=== PATIENT | female | born 1980 | race Caucasian/White ===

== ENCOUNTER 2023-03-07 15:25 | Inpatient (IN) | payer MEDICAID ==
[~2023-03-07] VITALS: Ht 160 cm; Wt 63.6 kg
[2023-03-07] MEDS ORDERED: acetaminophen 325mg tablet PO ONE (16:25)
[2023-03-07] MEDS ORDERED: ketorolac tromethamine 15mg/ml inj. IM ONE (16:25)
[2023-03-07 16:39] LABS: BASOPHILS % (AUTO) 0.2 % (0-1); EOSINOPHILS # (AUTO) 0.1 X10'3 (0-0.9); EOSINOPHILS % (AUTO) 0.4 % (0-6); HEMATOCRIT 33.1 % (35.0-45.0); HEMOGLOBIN 10.9 g/dl (12.0-16.0); LYMPHOCYTES # (AUTO) 1.8 X10'3 (1.1-4.8); LYMPHOCYTES % (AUTO) 11.5 % (21-51); MEAN CORPUSCULAR HEMOGLOBIN 29.5 PG (27.0-31.0); MEAN CORPUSCULAR VOLUME 89.4 FL (78-98); MEAN PLATELET VOLUME 7.5 FL (7.4-10.4); MONOCYTES # (AUTO) 2.1 X10'3 (0-0.9); MONOCYTES % (AUTO) 13.3 % (2-12); NEUTROPHILS # (AUTO) 11.8 X10'3 (1.8-7.7); NEUTROPHILS % (AUTO) 74.6 % (42-75); PLATELET COUNT 415 X10'3 (140-440); WHITE BLOOD COUNT 15.8 X10'3 (4.5-11.0)
[2023-03-07 16:58] LABS: ALANINE AMINOTRANSFERASE 75 U/L (12-78); ALBUMIN 2.4 G/DL (3.4-5.0); ALBUMIN/GLOBULIN RATIO 0.5 (1.1-1.5); ALKALINE PHOSPHATASE 217 IU/L (46-116); ANION GAP 10 (8-16); ASPARTATE AMINO TRANSFERASE 43 U/L (10-37); BILIRUBIN,TOTAL 0.3 MG/DL (0.1-1.0); BLOOD UREA NITROGEN 8 MG/DL (7-18); BUN/CREATININE RATIO 5.8 (10.0-20.0); CALCIUM 8.4 MG/DL (8.5-10.1); CHLORIDE 97 MMOL/L (99-107); CREATININE 1.39 MG/DL (0.40-0.90); GLUCOSE 118 MG/DL (70-104); POTASSIUM 3.5 MMOL/L (3.5-5.1); SODIUM 134 MMOL/L (135-145); TOTAL CARBON DIOXIDE 26.9 MMOL/L (24-32); TOTAL PROTEIN 6.9 G/DL (6.4-8.2); eCRCL 47 ML/MIN; eGFR 41 ML/MIN
[2023-03-07 17:03] LABS: BILIRUBIN,URINE NEGATIVE (Neg); COLOR,URINE YELLOW (Yellow); GLUCOSE, URINE NEGATIVE (Neg); KETONES,URINE NEGATIVE (Neg); LEUKOCYTE ESTERASE ,URINE LARGE (Neg); NITRITES, URINE POSITIVE (Neg); OCCULT BLOOD,URINE SMALL (Neg); PH,URINE 5.5 (4.8-8.0); PROTEIN,URINE 30 mg/dl (Neg); UROBILINOGEN,URINE 0.2 E.U/dL (0.2-1.0)
[2023-03-07 17:04] LABS: URINE HCG NEGATIVE (NEG)
[2023-03-07 17:10] LABS: CLARITY,URINE CLOUDY (Clear); UA COLLECTION TYPE CLN CATCH MIDSTREAM
[2023-03-07 17:12] LABS: WBC,URINE 50-100 /HPF (0-4)
[2023-03-07 17:13] LABS: BACTERIA,URINE 4+ /HPF (Neg); SQUAMOUS EPITHELIAL CELL,UR NONE SEEN /LPF (FEW)
[2023-03-07] MEDS ORDERED: normal saline 1000ML IV soln IV ONE (17:20)
[2023-03-07] MEDS ORDERED: CefTRIAXone 2gm/D5W 50ml BAG 50 ML IV ONE (17:20)
[2023-03-07 18:14] LABS: TOTAL CELLS COUNTED 100
[2023-03-07 18:16] LABS: PLATELET ESTIMATE NORMAL; POIKILOCYTOSIS 1+
[2023-03-07] MEDS ORDERED: temazepam 15mg capsule PO PRN (21:00)
[2023-03-07] MEDS ORDERED: acetaminophen 325mg tablet PO PRN (21:15)
[2023-03-07] MEDS ORDERED: magnesium hydroxide 30ml (MOM) UD suspension PO PRN (21:15)
[2023-03-07] MEDS ORDERED: metoclopramide 5 mg/ml inj IV PRN (21:15)
[2023-03-07] MEDS ORDERED: bisacodyl 10mg suppository rectal RC PRN (21:15)
[2023-03-07] MEDS ORDERED: mag hydrox/Alum hydrox/simeth 30ml oral suspension PO PRN (21:15)
[2023-03-07] MEDS ORDERED: ondansetron 4mg rapidly disintigrating tab PO PRN (21:15)
[2023-03-07] MEDS: normal saline 1000ml 1,000 ML IV SCH (21:38)
[2023-03-07 21:56] LABS: APTT 30 SECONDS (22-32); PROTHROMBIN TIME 10.7 SECONDS (9.0-12.0)
[2023-03-07 22:07] LABS: MAGNESIUM 1.6 MG/DL (1.5-2.4); PHOSPHORUS 3.2 MG/DL (2.3-4.5)
[2023-03-08] VITALS (7 sets, daily range): BP systolic 114–131; BP diastolic 72–94; PULSE 69–96; RESP 13–18; TEMP 97.1–98.8; O2SAT 95–100
[2023-03-08] MEDS: acetaminophen 325mg tablet PO PRN (02:11)
[2023-03-08] MEDS ORDERED: ALB0.5UD NEB (03:18)
[2023-03-08 06:20] LABS: BASOPHILS % (AUTO) 0.4 % (0-1); EOSINOPHILS # (AUTO) 0.2 X10'3 (0-0.9); EOSINOPHILS % (AUTO) 1.6 % (0-6); HEMATOCRIT 28.6 % (35.0-45.0); HEMOGLOBIN 9.8 g/dl (12.0-16.0); LYMPHOCYTES # (AUTO) 1.3 X10'3 (1.1-4.8); LYMPHOCYTES % (AUTO) 11.5 % (21-51); MEAN CORPUSCULAR HEMOGLOBIN 30.5 PG (27.0-31.0); MEAN CORPUSCULAR HGB CONC 34.2 g/dL (33.0-36.5); MEAN CORPUSCULAR VOLUME 89.2 FL (78-98); MEAN PLATELET VOLUME 7.6 FL (7.4-10.4); MONOCYTES # (AUTO) 1.2 X10'3 (0-0.9); MONOCYTES % (AUTO) 10.7 % (2-12); NEUTROPHILS # (AUTO) 8.7 X10'3 (1.8-7.7); NEUTROPHILS % (AUTO) 75.8 % (42-75); PLATELET COUNT 358 X10'3 (140-440); RED BLOOD COUNT 3.21 X10'6 (4.20-5.60); WHITE BLOOD COUNT 11.5 X10'3 (4.5-11.0)
[2023-03-08 06:32] LABS: ALANINE AMINOTRANSFERASE 74 U/L (12-78); ALBUMIN/GLOBULIN RATIO 0.5 (1.1-1.5); ALKALINE PHOSPHATASE 189 IU/L (46-116); ANION GAP 9 (8-16); ASPARTATE AMINO TRANSFERASE 53 U/L (10-37); BILIRUBIN,TOTAL 0.3 MG/DL (0.1-1.0); BLOOD UREA NITROGEN 9 MG/DL (7-18); BUN/CREATININE RATIO 7.3 (10.0-20.0); CALCIUM 7.7 MG/DL (8.5-10.1); CHLORIDE 103 MMOL/L (99-107); CREATININE 1.24 MG/DL (0.40-0.90); GLUCOSE 113 MG/DL (70-104); POTASSIUM 3.6 MMOL/L (3.5-5.1); SODIUM 139 MMOL/L (135-145); TOTAL CARBON DIOXIDE 26.8 MMOL/L (24-32); TOTAL PROTEIN 6.1 G/DL (6.4-8.2); eCRCL 48 ML/MIN; eGFR 47 ML/MIN
[2023-03-08] MEDS ORDERED: ALBUTEROL SULFATE NEB SCH (08:00)
[2023-03-08] MEDS: docusate sod 100mg capsule PO SCH ×2 (08:00→22:05)
[2023-03-08] MEDS: pantoprazole 40mg Tablet.DR PO SCH (08:37)
[2023-03-08] MEDS: heparin, porcine 5000 units/ml vial SQ SCH ×2 (08:39→21:48)
[2023-03-08] MEDS: normal saline 1000ml 1,000 ML IV SCH ×2 (08:42→18:07)
[2023-03-08] MEDS ORDERED: albuterol 2.5 MG/3 ML nebule NEB SCH (09:00)
[2023-03-08] MEDS ORDERED: pneumococcal 23-VAL P-sac vacc 25 mcg/0.5ml vial IMVAC ONE (10:00)
[2023-03-08] MEDS ORDERED: ondansetron/PF 4mg/2ml inj IV PRN (11:35)
[2023-03-08] MEDS ORDERED: morphine 2 MG/ML inj. syringe IV PRN (11:35)
[2023-03-08] MEDS: ondansetron/PF 4mg/2ml inj IV PRN ×2 (11:43→18:07)
[2023-03-08] MEDS ORDERED: metoclopramide 5 mg/ml inj IV PRN (11:50)
[2023-03-08 12:05] LABS: LIPASE 29 U/L (16-77)
[2023-03-08] MEDS: piperacillin/tazo 3.375gm/50ml 50 ML IV SCH ×2 (13:18→21:46)
[2023-03-08] MEDS ORDERED: CefTRIAXone/D5W-Rocephin 1gm 50 ML IV SCH (18:00)
[2023-03-08] MEDS: HYDROcodone/acetaminophen 5mg/325mg tablet PO PRN ×2 (18:04→22:25)
[2023-03-08] MEDS: albuterol 2.5 MG/3 ML nebule NEB PRN (22:37)
[2023-03-09] VITALS (9 sets, daily range): BP systolic 122–137; BP diastolic 65–74; PULSE 90–106; RESP 16–18; TEMP 98.2–98.9; O2SAT 95–100
[2023-03-09] MEDS: normal saline 1000ml 1,000 ML IV SCH ×3 (03:37→23:15)
[2023-03-09] MEDS: piperacillin/tazo 3.375gm/50ml 50 ML IV SCH ×3 (03:54→19:45)
[2023-03-09] MEDS: pantoprazole 40mg Tablet.DR PO SCH (07:30)
[2023-03-09] MEDS: heparin, porcine 5000 units/ml vial SQ SCH ×2 (08:00→19:44)
[2023-03-09] MEDS: docusate sod 100mg capsule PO SCH ×2 (08:00→19:45)
[2023-03-09 08:41] LABS: BASOPHILS % (AUTO) 0.6 % (0-1); EOSINOPHILS # (AUTO) 0.2 X10'3 (0-0.9); EOSINOPHILS % (AUTO) 2.9 % (0-6); HEMATOCRIT 27.2 % (35.0-45.0); HEMOGLOBIN 9.3 g/dl (12.0-16.0); LYMPHOCYTES # (AUTO) 1.5 X10'3 (1.1-4.8); LYMPHOCYTES % (AUTO) 20.1 % (21-51); MEAN CORPUSCULAR HEMOGLOBIN 30.5 PG (27.0-31.0); MEAN CORPUSCULAR HGB CONC 34.1 g/dL (33.0-36.5); MEAN CORPUSCULAR VOLUME 89.6 FL (78-98); MEAN PLATELET VOLUME 7.8 FL (7.4-10.4); MONOCYTES # (AUTO) 0.9 X10'3 (0-0.9); MONOCYTES % (AUTO) 12.5 % (2-12); NEUTROPHILS # (AUTO) 4.6 X10'3 (1.8-7.7); NEUTROPHILS % (AUTO) 63.9 % (42-75); PLATELET COUNT 420 X10'3 (140-440); RED BLOOD COUNT 3.04 X10'6 (4.20-5.60); RED CELL DISTRIBUTION WIDTH 13.5 % (11.5-14.5); WHITE BLOOD COUNT 7.3 X10'3 (4.5-11.0)
[2023-03-09 09:00] LABS: HBSAG SCREEN Negative (Negative); HEP B CORE AB, IGM Negative (Negative); HEP B CORE AB, TOT Negative (Negative)
[2023-03-09 09:17] LABS: ALANINE AMINOTRANSFERASE 92 U/L (12-78); ALBUMIN 1.9 G/DL (3.4-5.0); ALBUMIN/GLOBULIN RATIO 0.5 (1.1-1.5); ALKALINE PHOSPHATASE 192 IU/L (46-116); ANION GAP 7 (8-16); ASPARTATE AMINO TRANSFERASE 75 U/L (10-37); BILIRUBIN,TOTAL 0.3 MG/DL (0.1-1.0); BLOOD UREA NITROGEN 4 MG/DL (7-18); BUN/CREATININE RATIO 3.7 (10.0-20.0); CALCIUM 7.9 MG/DL (8.5-10.1); CHLORIDE 106 MMOL/L (99-107); CREATININE 1.09 MG/DL (0.40-0.90); GLUCOSE 97 MG/DL (70-104); SODIUM 139 MMOL/L (135-145); TOTAL CARBON DIOXIDE 25.7 MMOL/L (24-32); TOTAL PROTEIN 6.1 G/DL (6.4-8.2); eCRCL 55 ML/MIN; eGFR 55 ML/MIN
[2023-03-09] MEDS ORDERED: pneumococcal 23-VAL P-sac vacc 25 mcg/0.5ml vial IMVAC ONE (10:00)
[2023-03-09] MEDS: HYDROcodone/acetaminophen 5mg/325mg tablet PO PRN (10:54)
[2023-03-09] MEDS: albuterol 2.5 MG/3 ML nebule NEB PRN ×2 (16:19→20:23)
[2023-03-10] MEDS: acetaminophen 325mg tablet PO PRN (00:16)
[2023-03-10 06:00] VITALS: BP 141/82; PULSE 75; RESP 14; TEMP 97.2; O2SAT 96
[2023-03-10 08:29] LABS: BASOPHILS % (AUTO) 0.7 % (0-1); EOSINOPHILS # (AUTO) 0.2 X10'3 (0-0.9); HEMATOCRIT 28.1 % (35.0-45.0); HEMOGLOBIN 9.3 g/dl (12.0-16.0); LYMPHOCYTES # (AUTO) 1.5 X10'3 (1.1-4.8); LYMPHOCYTES % (AUTO) 22.3 % (21-51); MEAN CORPUSCULAR HEMOGLOBIN 29.9 PG (27.0-31.0); MEAN CORPUSCULAR HGB CONC 32.9 g/dL (33.0-36.5); MEAN CORPUSCULAR VOLUME 90.8 FL (78-98); MEAN PLATELET VOLUME 7.4 FL (7.4-10.4); MONOCYTES # (AUTO) 0.7 X10'3 (0-0.9); MONOCYTES % (AUTO) 9.9 % (2-12); NEUTROPHILS # (AUTO) 4.4 X10'3 (1.8-7.7); NEUTROPHILS % (AUTO) 64.1 % (42-75); PLATELET COUNT 500 X10'3 (140-440); RED CELL DISTRIBUTION WIDTH 13.9 % (11.5-14.5); WHITE BLOOD COUNT 6.8 X10'3 (4.5-11.0)
[2023-03-10 08:44] VITALS: PULSE 96; RESP 16; O2SAT 100
[2023-03-10 08:52] LABS: ALANINE AMINOTRANSFERASE 94 U/L (12-78); ALBUMIN 1.9 G/DL (3.4-5.0); ALBUMIN/GLOBULIN RATIO 0.5 (1.1-1.5); ALKALINE PHOSPHATASE 187 IU/L (46-116); ANION GAP 5 (8-16); ASPARTATE AMINO TRANSFERASE 57 U/L (10-37); BILIRUBIN,TOTAL 0.2 MG/DL (0.1-1.0); BLOOD UREA NITROGEN 3 MG/DL (7-18); BUN/CREATININE RATIO 3.3 (10.0-20.0); CALCIUM 8.2 MG/DL (8.5-10.1); CHLORIDE 109 MMOL/L (99-107); CREATININE 0.92 MG/DL (0.40-0.90); GLUCOSE 96 MG/DL (70-104); POTASSIUM 4.4 MMOL/L (3.5-5.1); SODIUM 142 MMOL/L (135-145); TOTAL CARBON DIOXIDE 28.2 MMOL/L (24-32); TOTAL PROTEIN 6.1 G/DL (6.4-8.2); eCRCL 65 ML/MIN; eGFR 67 ML/MIN
[2023-03-10] MEDS: heparin, porcine 5000 units/ml vial SQ SCH (09:32)
[2023-03-10] MEDS: docusate sod 100mg capsule PO SCH (09:33)
[2023-03-10] MEDS: pantoprazole 40mg Tablet.DR PO SCH (09:33)
[2023-03-10 10:00] VITALS: BP 139/90; PULSE 87; RESP 16; TEMP 98.4; O2SAT 97
[2023-03-10] MEDS ORDERED: LEVO-65 PO (10:58)
[2023-03-10] MEDS ORDERED: ONDA4TAB12 PO (10:58)
[2023-03-10] MEDS ORDERED: PANT40TA54 PO (10:58)
[2023-03-10] MEDS ORDERED: levoFLOXACIN 500mg tablet PO SCH (11:00)
[2023-03-10] MEDS: ondansetron/PF 4mg/2ml inj IV PRN (12:48)
[2023-03-10] MEDS: normal saline 1000ml 1,000 ML IV SCH (12:48)
[2023-03-10] MEDS ORDERED: HYDR-3965 PO (16:16)
== END 2023-03-10 18:30 | disposition home or self-care (01) | DRG 720 ==
LOC: ER 15:26 → ED HOLD 21:20 → ORTHO 4S 03-08 02:20
PROVIDERS: ADMIT Family Medicine; ATTEND Internal Medicine
DX: A41.51 Sepsis due to Escherichia coli [E. coli] (principal); N17.0 Acute kidney failure with tubular necrosis; E87.1 Hypo-osmolality and hyponatremia; N12 Tubulo-interstitial nephritis, not specified as acute or chronic; K21.9 Gastro-esophageal reflux disease without esophagitis; E86.0 Dehydration; D64.9 Anemia, unspecified; Z20.822 Contact with and (suspected) exposure to COVID-19; E86.1 Hypovolemia; N18.9 Chronic kidney disease, unspecified; R16.0 Hepatomegaly, not elsewhere classified; Z88.5 Allergy status to narcotic agent
CPT/HCPCS: 36415; 71045; 74176; 80053; 81001; 81025; 82948; 83605; 83690; 83735; 83880; 84100; 84145; 85007; 85025; 85610; 85730; 86704; 86705; 87040; 87077; 87081; 87088; 87186; 87340; 87502; 87503; 87811; 94640; 94760; 99285; G0378; J0696; J1644; J1885; J2270; J2405; J2543; J7030

== ENCOUNTER 2024-04-18 16:10 | Emergency (ER) | payer MEDICAID ==
[~2024-04-18 16:10] MED LIST: LEVO-65 PO; ONDA-243 PO; PANT40TA54 PO
== END 2024-04-18 17:03 | disposition left against medical advice (07) ==
LOC: ER 16:11
DX: Z53.21 Procedure and treatment not carried out due to patient leaving prior to being seen by health care provider (principal)

== ENCOUNTER 2024-04-23 11:00 | Emergency (ER) | payer MEDICAID ==
[~2024-04-23] VITALS: Ht 160 cm; Wt 61.4 kg
[2024-04-23 14:17] LABS: BILIRUBIN,URINE NEGATIVE (Neg); CLARITY,URINE CLEAR (Clear); COLOR,URINE YELLOW (Yellow); GLUCOSE, URINE NEGATIVE (Neg); KETONES,URINE NEGATIVE (Neg); LEUKOCYTE ESTERASE ,URINE NEGATIVE (Neg); NITRITES, URINE NEGATIVE (Neg); OCCULT BLOOD,URINE TRACE-INTACT (Neg); PH,URINE 7.5 (4.8-8.0); PROTEIN,URINE NEGATIVE (Neg); UROBILINOGEN,URINE 0.2 E.U/dL (0.2-1.0)
[2024-04-23 14:18] LABS: UA COLLECTION TYPE CLN CATCH MIDSTREAM
[2024-04-23 14:30] LABS: AMORPHOUS PHOSPHATES 1+; BACTERIA,URINE FEW /HPF (Neg); MUCUS STRANDS NONE SEEN /LPF (Neg); RBC,URINE 0-2 /HPF (0-2); SQUAMOUS EPITHELIAL CELL,UR NONE SEEN /LPF (FEW); WBC,URINE 0-4 /HPF (0-4)
[2024-04-23 15:15] LABS: BASOPHILS % (AUTO) 0.1 % (0-1); EOSINOPHILS # (AUTO) 0.1 X10'3 (0-0.9); EOSINOPHILS % (AUTO) 0.8 % (0-6); HEMOGLOBIN 13.2 g/dl (12.0-16.0); LYMPHOCYTES # (AUTO) 2.3 X10'3 (1.1-4.8); MEAN CORPUSCULAR HEMOGLOBIN 30.2 PG (27.0-31.0); MEAN CORPUSCULAR HGB CONC 33.8 g/dL (33.0-36.5); MEAN CORPUSCULAR VOLUME 89.4 FL (78-98); MEAN PLATELET VOLUME 7.6 FL (7.4-10.4); MONOCYTES # (AUTO) 0.4 X10'3 (0-0.9); MONOCYTES % (AUTO) 5.4 % (2-12); NEUTROPHILS # (AUTO) 4.4 X10'3 (1.8-7.7); NEUTROPHILS % (AUTO) 61.7 % (42-75); PLATELET COUNT 404 X10'3 (140-440); RED BLOOD COUNT 4.37 X10'6 (4.20-5.60); RED CELL DISTRIBUTION WIDTH 13.2 % (11.5-14.5); WHITE BLOOD COUNT 7.1 X10'3 (4.5-11.0)
[2024-04-23 15:20] LABS: HCG SERUM QL NEGATIVE
[2024-04-23 15:26] LABS: ALANINE AMINOTRANSFERASE 30 U/L (12-78); ALBUMIN 3.6 G/DL (3.4-5.0); ALBUMIN/GLOBULIN RATIO 0.9 (1.1-1.5); ALKALINE PHOSPHATASE 95 IU/L (46-116); ANION GAP 5 (8-16); ASPARTATE AMINO TRANSFERASE 18 U/L (10-37); BILIRUBIN,TOTAL 0.2 MG/DL (0.1-1.0); BLOOD UREA NITROGEN 8 MG/DL (7-18); BUN/CREATININE RATIO 10.7 (10.0-20.0); CALCIUM 9.5 MG/DL (8.5-10.1); CHLORIDE 104 MMOL/L (99-107); CREATININE 0.75 MG/DL (0.40-0.90); GLUCOSE 93 MG/DL (70-104); POTASSIUM 4.5 MMOL/L (3.5-5.1); SODIUM 139 MMOL/L (135-145); TOTAL CARBON DIOXIDE 29.7 MMOL/L (24-32); TOTAL PROTEIN 7.8 G/DL (6.4-8.2); eCRCL 79 ML/MIN; eGFR 84 ML/MIN
[2024-04-23] MEDS: CefTRIAXone 1000mg IM Kit (w/lidocaine diluent) IM ONE (17:11)
[2024-04-23] MEDS: ketorolac trometh 30MG/ML vial 30 MG/ML VIAL IM ONE (17:11)
[2024-04-23] MEDS ORDERED: DOXY150T9 PO (17:22)
[2024-04-23 17:33] VITALS: BP 126/81; PULSE 68; RESP 16; TEMP 97.8; O2SAT 98
== END 2024-04-23 17:34 | disposition home or self-care (01) ==
LOC: ER 11:01
DX: N93.8 Other specified abnormal uterine and vaginal bleeding (principal); N73.9 Female pelvic inflammatory disease, unspecified; Z88.5 Allergy status to narcotic agent; Z79.899 Other long term (current) drug therapy
CPT/HCPCS: 36415; 76856; 80053; 81001; 84703; 85025; 93976; 96372; 99285; J0696; J1885; A6449